=== PATIENT | female | born 1955 | race Two or more races ===

== ENCOUNTER 2019-09-30 11:37 | Outpatient (CLI) | payer OTHER | END 2019-09-30 11:46 | disposition home or self-care (01) | LOC: EDBD 11:37 → LAB 11:37 | DX: J45.41 Moderate persistent asthma with (acute) exacerbation (principal); J15.7 Pneumonia due to Mycoplasma pneumoniae; J11.1 Influenza due to unidentified influenza virus with other respiratory manifestations ==